=== PATIENT | female | born 1985 | race Caucasian/White ===

== ENCOUNTER 2017-01-07 14:06 | Emergency (ER) | payer BC ==
[~2017-01-07] VITALS: Ht 167.6 cm; Wt 50.0 kg
[~2017-01-07 14:06] MED LIST: AMOX875 PO; MMW SWISH-SPIT
[2017-01-07 14:08] VITALS: BP 139/93; PULSE 114; RESP 18; TEMP 98.4; O2SAT 99
--- NOTE | 2017-01-07 14:34 | PD ---
Physical Exam Time Seen by Provider: 14:33 Narrative 31 y/o female here with one week of abdominal pain, decreased appetite. Vital signs reviewed. Seen at triage desk. Awaiting bed placement. Data Data Last Documented VS Vital Signs Date Time Temp Pulse Resp B/P Pulse Ox O2 Delivery O2 Flow Rate FiO2 01/07/17 14:08 98.4 114 18 139/93 99 MDM Medical Record Reviewed: Yes Supervised Visit with RAGINI: No Alvaro Gallego Jan 07, 2017 14:34
[2017-01-07] MEDS ORDERED: MIRA3350 PO (16:55)
[2017-01-07] MEDS ORDERED: SODIUM CHLOR 0.9% 1000 ML INJ 1,000 ML IV SCH (17:05)
[2017-01-07] MEDS ORDERED: LIDOCAINE VISCOUS 2% SOLN 15 ML UDC PO ONE (17:15)
[2017-01-07] MEDS ORDERED: ONDANSETRON HCL 4 MG/2 ML VIAL IVP ONE (17:15)
[2017-01-07] MEDS ORDERED: SODIUM CHLORIDE 0.9% FLUSH 10 ML FLUSH IV FLUSH PRN (17:15)
[2017-01-07] MEDS ORDERED: ALUMINUM/MAGNESIUM/SIMETH 30 ML CUP PO ONE (17:15)
[2017-01-07] MEDS ORDERED: MORPHINE SULFATE 4 MG/ML INJ IV PUSH ONE (17:15)
[2017-01-07 17:41] VITALS: O2SAT 100
[2017-01-07 17:48] LABS: BLOOD, URINE NEG (NEG); COMMENT (UR) CULT NOT INDICATED; CULTURE IF INDICATED CULT NOT INDICATED; GLUCOSE,URINE NEG (NEG); KETONE, URINE 80 mg/dL (NEG); NITRITE,URINE NEG (NEG); PH, URINE 5.5 (5.0-8.5); SQUAMOUS EPITHELIAL CELL URINE <1 /hpf (0-5); URINE COLOR YELLOW (YELLW/STRAW)
[2017-01-07 17:55] LABS: AUTOMATED NEUTROPHIL # 5.2 TH/MM3 (1.8-7.7); BASOPHIL % 0.4 % (0.0-2.0); EOSINOPHIL % 0.6 % (0.0-4.0); HEMATOCRIT 39.3 % (35.0-46.0); HEMO FLAGS DIFF FINAL; LYMPH % 23.1 % (9.0-44.0); LYMPHOCYTE # 1.8 TH/MM3 (1.0-4.8); MEAN CELL VOLUME 88.9 FL (80.0-100.0); MEAN CORPUSCULAR HEMOGLOBIN 31.1 PG (27.0-34.0); MONO % 8.6 % (0.0-8.0); NEUT % 67.3 % (16.0-70.0); PLATELET COUNT 186 TH/MM3 (150-450); RED BLOOD COUNT 4.42 MIL/MM3 (4.00-5.30); RED CELL DISTRIBUTION WIDTH 13.2 % (11.6-17.2); WHITE BLOOD COUNT 7.8 TH/MM3 (4.0-11.0)
[2017-01-07 18:00] VITALS: BP 113/75; PULSE 94; RESP 24; O2SAT 100
[2017-01-07 18:00] LABS: APTT (PATIENT) 30.6 SEC (24.3-30.1); PROTHROMBIN TIME - PATIENT 11.2 SEC (9.8-11.6)
[2017-01-07 18:04] LABS: ALT (GPT) 12 U/L (10-53); ANION GAP 9 MEQ/L (5-15); AST (GOT) 10 U/L (15-37); BICARBONATE 27.2 MEQ/L (21.0-32.0); BLOOD UREA NITROGEN 9 MG/DL (7-18); CHLORIDE 103 MEQ/L (98-107); GLOMERULAR FILTRATION RATE 96 ML/MIN (>89); POTASSIUM 3.6 MEQ/L (3.5-5.1); SODIUM (NA) 139 MEQ/L (136-145)
[2017-01-07 18:06] LABS: ALKALINE PHOSPHATASE 50 U/L (45-117); TOTAL BILIRUBIN ADULT 0.8 MG/DL (0.2-1.0)
--- NOTE | 2017-01-07 18:10 | PD ---
HPI Chief Complaint: Abdominal Pain Time Seen by Provider: 18:06 Travel History International Travel<30 days: No Contact w/Intl Traveler<30days: No Traveled to known affect area: No History of Present Illness HPI 31-year-old female presents to the ED for evaluation of 1 week history of anorexia and 8/10 epigastric abdominal pain. Patient states the pain is worsened by eating. No exacerbating factors reported. She endorses mild nausea. She states that she has had small bowel movements over the same period of time. Denies melena, hematochezia, BRBPR. Patient denies chronic alcohol use. LMP mid November. Patient reports using contraception. PFSH Past Medical History Diminished Hearing: No ?: Not LMP: December 16, 2016 Past Surgical History Oral Surgery: Yes (WISDOM TEETH REMOVED) Social History Alcohol Use: No (occassionaly ) Tobacco Use: No Substance Use: No Allergies-Medications (Allergen,Severity, Reaction): Coded Allergies: No Known Allergies (Unverified , 01/07/17) Reported Meds & Prescriptions Reported Meds & Active Scripts Active Protonix (Pantoprazole Sodium) 40 Mg Tab 40 Mg PO DAILY Reported Miralax Powder (Polyethylene Glycol 3350 Powder) 17 Gm Powd 17 Gm PO DAILY Mix and dissolve one measuring cap-ful (17 grams) in water or juice. Review of Systems Except as stated in HPI: all other systems reviewed are Neg Physical Exam Narrative GENERAL: Well-nourished, well-developed thin white female in no acute distress. SKIN: Focused skin assessment warm/dry. HEAD: Normocephalic. EYES: No scleral icterus. No injection or drainage. NECK: Supple, trachea midline. No JVD or lymphadenopathy. CARDIOVASCULAR: Regular rate and rhythm without murmurs, gallops, or rubs. RESPIRATORY: Breath sounds clear and equal bilaterally. No accessory muscle use. GASTROINTESTINAL: Abdomen soft, nondistended. Tender to palpation in the epigastric region and left upper quadrant. Active bowel sounds. MUSCULOSKELETAL: No cyanosis, or edema. BACK: Nontender without obvious deformity. No CVA tenderness. Data Data Last Documented VS Vital Signs Date Time Temp Pulse Resp B/P Pulse Ox O2 Delivery O2 Flow Rate FiO2 01/07/17 18:00 94 24 113/75 100 01/07/17 14:08 98.4 Orders Complete Blood Count With Diff (01/07/17 17:05) Comprehensive Metabolic Panel (01/07/17 17:05) Lipase (01/07/17 17:05) Lactic Acid (01/07/17 17:05) Prothrombin Time / Inr (Pt) (01/07/17 17:05) Act Partial Throm Time (Ptt) (01/07/17 17:05) Urinalysis - C+S If Indicated (01/07/17 17:05) Ct Abd/Pel W Iv Contrast(Rout) (01/07/17 17:05) Iv Access Insert/Monitor (01/07/17 17:05) Ecg Monitoring (01/07/17 17:05) Oximetry (01/07/17 17:05) Ondansetron Inj (Zofran Inj) (01/07/17 17:15) Sodium Chlor 0.9% 1000 Ml Inj (Ns 1000 M (01/07/17 17:05) Sodium Chloride 0.9% Flush (Ns Flush) (01/07/17 17:15) Morphine Inj (Morphine Inj) (01/07/17 17:15) Al-Mag Hy-Si 40-40-4 Mg/Ml Liq (Mag-Al P (01/07/17 17:15) Lidocaine 2% Viscous (Xylocaine 2% Visco (01/07/17 17:15) Ed Urine Pregnancytest Poc (01/07/17 17:05) Iohexol 350 Inj (Omnipaque 350 Inj) (01/07/17 18:56) Labs Laboratory Tests Test 01/07/17 16:25 White Blood Count 7.8 TH/MM3 Red Blood Count 4.42 MIL/MM3 Hemoglobin 13.7 GM/DL Hematocrit 39.3 % Mean Corpuscular Volume 88.9 FL Mean Corpuscular Hemoglobin 31.1 PG Mean Corpuscular Hemoglobin 35.0 % Concent Red Cell Distribution Width 13.2 % Platelet Count 186 TH/MM3 Mean Platelet Volume 8.1 FL Neutrophils (%) (Auto) 67.3 % Lymphocytes (%) (Auto) 23.1 % Monocytes (%) (Auto) 8.6 % Eosinophils (%) (Auto) 0.6 % Basophils (%) (Auto) 0.4 % Neutrophils # (Auto) 5.2 TH/MM3 Lymphocytes # (Auto) 1.8 TH/MM3 Monocytes # (Auto) 0.7 TH/MM3 Eosinophils # (Auto) 0.0 TH/MM3 Basophils # (Auto) 0.0 TH/MM3 CBC Comment DIFF FINAL Differential Comment Prothrombin Time 11.2 SEC Prothromb Time International 1.0 RATIO Ratio Activated Partial 30.6 SEC Thromboplast Time Urine Color YELLOW Urine Turbidity CLEAR Urine pH 5.5 Urine Specific [place] 1.009 Urine Protein NEG mg/dL Urine Glucose (UA) NEG mg/dL Urine Ketones 80 mg/dL Urine Occult Blood NEG Urine Nitrite NEG Urine Bilirubin NEG Urine Urobilinogen LESS THAN 2.0 MG/DL Urine Leukocyte Esterase NEG Urine RBC LESS THAN 1 /hpf Urine WBC 1 /hpf Urine Squamous Epithelial <1 /hpf Cells Microscopic Urinalysis Comment CULT NOT INDICATED Sodium Level 139 MEQ/L Potassium Level 3.6 MEQ/L Chloride Level 103 MEQ/L Carbon Dioxide Level 27.2 MEQ/L Anion Gap 9 MEQ/L Blood Urea Nitrogen 9 MG/DL Creatinine 0.71 MG/DL Estimat Glomerular Filtration 96 ML/MIN Rate Random Glucose 72 MG/DL Lactic Acid Level 1.2 mmol/L Calcium Level 8.8 MG/DL Total Bilirubin 0.8 MG/DL Aspartate Amino Transf 10 U/L (AST/SGOT) Alanine Aminotransferase 12 U/L (ALT/SGPT) Alkaline Phosphatase 50 U/L Total Protein 7.9 GM/DL Albumin 4.4 GM/DL Lipase 61 U/L MDM Medical Decision Making Medical Screen Exam Complete: Yes Emergency Medical Condition: Yes Differential Diagnosis GERD versus PUD versus pancreatitis versus cholecystitis versus UTI versus Jeremy- Brayan Rafita versus other Narrative Course 31-year-old female presents to the ED for evaluation of 1 week history of anorexia and 8/10 epigastric abdominal pain, worsened by eating. No alleviating factors reported. She endorses mild nausea. She states that she has had small bowel movements over the same period of time. Denies melena, hematochezia, BRBPR. Patient denies chronic alcohol use. LMP mid November. Patient reports using contraception. Vitals reviewed. The patient is tachycardic in triage but this resolves in the exam room. Patient has discrete tenderness in the epigastric area, abdominal exam otherwise unremarkable. She was administered a liter of normal saline and a GI cocktail. She reported improvement of her symptoms with the medications. I suspect her symptoms are caused by GERD, possibly peptic ulcer disease. ED urine test negative. No abnormalities of the CBC, CMP, UA, lipase, lactic acid. CT reveals 5.7 cm right adnexal mass, otherwise unremarkable. There is no right lower quadrant abdominal pain on exam. I think this mass can be evaluated on an outpatient basis. Patient was prescribed Protonix 40 mg daily. She is instructed to follow-up with the foreign exchange services manager tomorrow and the primary care or metal dresser this week. The patient was provided with a copy of her CT result. She indicated understanding of the instructions and is agreeable to the care plan. She is stable and discharged home. Diagnosis Primary Impression: Epigastric abdominal pain Additional Impression: Pelvic mass in female Referrals: Crystal Tracy MD Patient Instructions: Epigastric Pain (ED), General Instructions Additional Instructions: Rest, hydrate. Eat a bland diet over the next few days and gradually reintroduce new foods. Take Protonix as prescribed. Follow-up with the foreign exchange services manager tomorrow morning. He then provided with the results of your CT. There is a right adnexal mass that should be evaluated on an outpatient basis. Follow-up with your primary care provider or IT SYSTEMS ADMINISTRATOR. Return to the ED for any urgent or emergent medical condition. Med/Other Pt SpecificInfo: Prescription(s) given Scripts Pantoprazole (Protonix)40 Mg Tab40 Mg PO DAILY #30 TAB Ref 0 Prov:Derek Perez MD 01/07/17 Disposition: 01 DISCHARGE HOME Condition: Stable Sandra Gutierrez Jan 07, 2017 18:10
[2017-01-07] MEDS ORDERED: IOHEXOL 350 MG/ML 10 ML VIAL (for RAD DIAG) IV ONE (18:56)
[2017-01-07] MEDS ORDERED: PROT40TA PO (19:23)
--- NOTE | 2017-01-07 19:30 | RADRPT ---
EXAM DATE/TIME: 01/07/2017 18:53 [facility] COMPARISON: No previous studies available for comparison. INDICATIONS : Abdominal pain X 6 days. IV CONTRAST: 76 cc Omnipaque 350 (iohexol) IV ORAL CONTRAST: No oral contrast ingested. RADIATION DOSE: CTDIvol (mGy) MEDICAL HISTORY : None SURGICAL HISTORY : None. ENCOUNTER: Initial ACUITY: 1 day PAIN SCALE: 7/10 LOCATION: abdomen TECHNIQUE: Volumetric scanning of the abdomen and pelvis was performed. Using automated exposure control and ad justment of the mA and/or kV according to patient size, radiation dose was kept as low as reasonably achievable to obtain optimal diagnostic quality images. DICOM format image data is available electro nically for review and comparison. FINDINGS: Lung bases are clear. No acute findings in the liver, spleen, adrenals, kidneys or pancreas. No galls tones or biliary ductal dilatation identified. Within the pelvis there is a 5.7 cm circumscribed mass in the right adnexal region with heterogeneous attenuation, possibly a hemorrhagic ovarian cyst. This would be better evaluated with pelvic ultraso und. No bowel obstruction. No free air or free fluid. No bony abnormality. CONCLUSION: 1. 5.7 cm right adnexal mass, possibly ovarian in origin. Further evaluation with pelvic ultrasound r ecommended. Natanael Chinchilla MD on January 07, 2017 at 19:21 Board Certified Radiologist. This report was verified electronically.
== END 2017-01-07 21:10 | disposition home or self-care (01) ==
LOC: NEPD 14:06
DX: R10.13 Epigastric pain (principal); R19.03 Right lower quadrant abdominal swelling, mass and lump
CPT/HCPCS: 74177; 80053; 81001; 83605; 83690; 84703; 85025; 85610; 85730; 96361; 96374; 96375; 99285; J2270; J2405; J7030; Q9967